=== PATIENT | female | born 1990 | race African-American/Black ===

== ENCOUNTER 2019-09-10 08:59 | Emergency (ER) | payer OTHER ==
[~2019-09-10] VITALS: Ht 167.6 cm; Wt 52.2 kg
--- OUTSIDE RECORDS SUMMARY | ~2019-09-10 | XMS ---
Demographics + + + | Address | [address] [facility] | | | [place] [address] | + + + | Preferred Language | Unknown | + + + | Marital Status | Unknown | + + + | Yazidi Affiliation | Unknown | + + + | Race | Unknown | + + + | Ethnic Group | Unknown | + + + Author + + + | Author | [facility] | + + + | Organization | [facility] | + + + | Address | [address] | | | [place] [address] | + + + | Phone | | + + + Care Team Providers + + + + | Care Yard Demurrage Clerk Name | Role | Phone | + + + + Unavailable | Unavailable | + + + + PROBLEMS +---------+ + + +--------+ + + | Type | Condition | ICD9-CM | [id number] | Onset | Condition | SNOMED | | | | Code | Code | Dates | Status | Code | +---------+ + + +--------+ + + | Problem | Insomnia | | G47.00 | | Active | [id number] | +---------+ + + +--------+ + + | Problem | Depression | | F32.9 | | Active | [id number] | | | , | | | | | | | | unspecifie | | | | | | | | d | | | | | | | | depression | | | | | | | | type | | | | | | +---------+ + + +--------+ + + | Problem | Anxiety | | F41.9 | | Active | [id number] | +---------+ + + +--------+ + + | Problem | Anemia | | O99.013 | | Active | [id number] | | | affecting | | | | | | | | | | | | | | | | in third | | | | | | | | trimester | | | | | | +---------+ + + +--------+ + + | Problem | Depression | | F41.8 | | Active | [id number] | | | with | | | | | | | | anxiety | | | | | | +---------+ + + +--------+ + + ALLERGIES No Known Allergies SOCIAL HISTORY Never Assessed PLAN OF CARE + +---------+ | Activity | Details | + +---------+ +---+ | | +---+ + + + | Follow Up | 4 Weeks Reason:KM for recheck | + + + VITAL SIGNS + + + + | Height | 5 ft 6 in in | 2017-03-25 | + + + + | Weight | 164.1 lbs | 2017-03-25 | + + + + | BMI | 26.48 kg/m2 | 2017-03-25 | + + + + | Temperature | 98.3 degrees Fahrenheit | 2017-03-25 | + + + + | Heart Rate | 112 /min | 2017-03-25 | + + + + | Blood pressure systolic | 116 mm Hg | 2017-03-25 | + + + + | Blood pressure diastolic | 78 mm Hg | 2017-03-25 | + + + + MEDICATIONS + + + + + + + + + | Medicati | Instruct | Dosage | Frequenc | Start | End Date | Duration | Status | | on | ions | | y | Date | | | | + + + + + + + + + | | Orally | as | 24h | 28 Sep, | | 30 days | Not-Taki | | Vitamin | once a | directed | | 2016 | | | ng | | 27-0.8 | day | | | | | | | | MG | | | | | | | | + + + + + + + + + | Depo | | | | | | | Active | | Provera | | | | | | | | | IM | | | | | | | | + + + + + + + + + | Cycloben | Orally | 1 tablet | | | 22 Feb, | 30 | Active | | zaprine | at | as | | | 2018 | day(s) | | | HCl 5 MG | bedtime | needed | | | | | | | | prn | | | | | | | + + + + + + + + + | Lexapro | Orally | 1 tablet | 24h | Mar, | | 30 | Active | | 10 mg | Once a | | | 2018 | | day(s) | | | | day | | | | | | | + + + + + + + + + RESULTS No Results PROCEDURES + + +--------+ + | Procedure | Date Ordered | Result | Body Site | + + +--------+ + | Depo Provera 150 | Mar 25, 2017 | | | | mg/ml | | | | + + +--------+ + | INJECTION | Mar 25, 2017 | | | | ADMINISTRATION | | | | + + +--------+ + | DOC MEDS VERIFIED | Mar 25, 2017 | | | | W/PT OR RE | | | | + + +--------+ + IMMUNIZATIONS + + + + + | Vaccine | Route | Administration Date | Status | + + + + + | Depo Provera 150 | IM Intramuscular | Mar 25, 2017 | Administered | | mg/ml | | | | + + + + + MEDICAL (GENERAL) HISTORY + + + + | Type | Description | Date | + + + + | Medical History | | | + + + + | Surgical History | | 07/2016 | + + + + | Hospitalization History | Induction for Preeclampsia | Nov 11 | | | with severe features / | | + + + + | Hospitalization History | Induction for Preeclampsia, | July 2016 | | | HELLP, placental | | | | abruption, anemia | | + + + +"
--- OUTSIDE RECORDS SUMMARY | ~2019-09-10 | XMS ---
Demographics + + + | Address | [address] [facility] | | | [place] [address] | + + + | Preferred Language | Unknown | + + + | Marital Status | Unknown | + + + | Church Affiliation | Unknown | + + + | Race | Unknown | + + + | Ethnic Group | Unknown | + + + Author + + + | Author | [facility] | + + + | Organization | [facility] | + + + | Address | [address] | | | [place] [address] | + + + | Phone | [phone] | + + + Care Team Providers + + + + | Care Jewelry Sales Associate Name | Role | Phone | + + + + Unavailable | Unavailable | + + + + PROBLEMS +---------+ + + +--------+ + + | Type | Condition | ICD9-CM | [id number] | Onset | Condition | SNOMED | | | | Code | Code | Dates | Status | Code | +---------+ + + +--------+ + + | Problem | Anemia | O99.013 | | | Active | [id number] | | | affecting | | | | | | | | | | | | | | | | in third | | | | | | | | trimester | | | | | | +---------+ + + +--------+ + + | Problem | Depression | | F41.8 | | Active | [id number] | | | with | | | | | | | | anxiety | | | | | | +---------+ + + +--------+ + + | Problem | Anxiety | | F41.9 | | Active | 86060119 | +---------+ + + +--------+ + + ALLERGIES + + + + +---------+ | Substance | Reaction | Event Type | Date | Status | + + + + +---------+ | N.K.D.A. | Unknown | Non Drug | Aug, | Unknown | | | | Allergy | | | + + + + +---------+ SOCIAL HISTORY No smoking Hx information available PLAN OF CARE + +---------+ | Activity | Details | + +---------+ +---+ | | +---+ + + + | Follow Up | prn Reason:null | + + + | Pending Test | Urinalysis, Dip (IH) | + + + VITAL SIGNS + + + + | Height | 5 ft 6 in in | 2016-09-19 | + + + + | Weight | 149 lbs | 2016-09-19 | + + + + | BMI | 24.05 kg/m2 | 2016-09-19 | + + + + | Heart Rate | 114 /min | 2016-09-19 | + + + + | Blood pressure systolic | 122 mm Hg | 2016-09-19 | + + + + | Blood pressure diastolic | 67 mm Hg | 2016-09-19 | + + + + MEDICATIONS + + + + + + + +--------+ | Medicati | Instruct | Dosage | Frequenc | Start | End Date | Duration | Status | | on | ions | | y | Date | | | | + + + + + + + +--------+ | Cycloben | po q8hr | 1 tab(s) | | Jan, | Jan, | 30 days | Active | | zaprine | PRN | | | 2015 | 2016 | | | | 10 mg | | | | | | | | + + + + + + + +--------+ | | Orally | as | 24h | 28 Nov, | | 30 days | Active | | Vitamin | once a | directed | | 2015 | | | | | 27-0.8 | day | | | | | | | | MG | | | | | | | | + + + + + + + +--------+ RESULTS No Results PROCEDURES + + + + + | Procedure | Date Ordered | Related Diagnosis | Body Site | + + + + + | LAB URINALYSIS (DIP | September 19, 2016 | | | | STICK ONLY | | | | + + + + + | Est Level III | September 19, 2016 | | | | Intermediate | | | | + + + + + | DOC MEDS VERIFIED | September 19, 2016 | | | | W/PT OR RE | | | | + + + + + | DSCHRG MED/CURRENT | September 19, 2016 | | | | MED MERGE | | | | + + + + + IMMUNIZATIONS No Known Immunizations"
--- OUTSIDE RECORDS SUMMARY | ~2019-09-10 | XMS ---
Demographics + + + | Address | [address] [facility] | | | [place] [address] | + + + | Preferred Language | Unknown | + + + | Marital Status | Unknown | + + + | Mandaeism Affiliation | Unknown | + + + | Race | Unknown | + + + | Ethnic Group | Unknown | + + + Author + + + | Author | [facility] | + + + | Organization | [facility] | + + + | Address | [address] | | | [place] [address] | + + + | Phone | | + + + Care Team Providers + + + + | Care Pipe Organ Tuner And Repairer Name | Role | Phone | + + + + Unavailable | Unavailable | + + + + PROBLEMS +---------+ + + +--------+ + + | Type | Condition | ICD9-CM | [id number] | Onset | Condition | SNOMED | | | | Code | Code | Dates | Status | Code | +---------+ + + +--------+ + + | Problem | Insomnia | | G47.00 | | Active | [id number] | +---------+ + + +--------+ + + | Problem | Depression | | F32.9 | | Active | 61975887 | | | , | | | | | | | | unspecifie | | | | | | | | d | | | | | | | | depression | | | | | | | | type | | | | | | +---------+ + + +--------+ + + | Problem | Anxiety | | F41.9 | | Active | 79304738 | +---------+ + + +--------+ + + | Problem | Anemia | | O99.013 | | Active | 10556228 | | | affecting | | | | | | | | | | | | | | | | in third | | | | | | | | trimester | | | | | | +---------+ + + +--------+ + + | Problem | Depression | | F41.8 | | Active | [id number] | | | with | | | | | | | | anxiety | | | | | | +---------+ + + +--------+ + + ALLERGIES No Known Allergies SOCIAL HISTORY Never Assessed PLAN OF CARE + +---------+ | Activity | Details | + +---------+ +---+ | | +---+ + + + | Follow Up | 3 Months Reason: | + + + VITAL SIGNS + + + + | Height | 5 ft 6 in in | 2016-11-21 | + + + + | Weight | 155.4 lbs | 2016-11-21 | + + + + | BMI | 25.08 kg/m2 | 2016-11-21 | + + + + | Temperature | 98.2 degrees Fahrenheit | 2016-11-21 | + + + + | Heart Rate | 102 /min | 2016-11-21 | + + + + | Blood pressure systolic | 110 mm Hg | 2016-11-21 | + + + + | Blood pressure diastolic | 70 mm Hg | 2016-11-21 | + + + + MEDICATIONS + + + + + + + +--------+ | Medicati | Instruct | Dosage | Frequenc | Start | End Date | Duration | Status | | on | ions | | y | Date | | | | + + + + + + + +--------+ | Cycloben | po q8hr | 1 tab(s) | | 29 Jan, | 19 Dec, | 30 days | Active | | zaprine | PRN | | | 2016 | 2017 | | | | 10 mg | | | | | | | | + + + + + + + +--------+ | | Orally | as | 24h | 28 Sep, | | 30 days | Active | | Vitamin | once a | directed | | 2015 | | | | | 27-0.8 | day | | | | | | | | MG | | | | | | | | + + + + + + + +--------+ | Depo | | | | | | | Active | | Provera | | | | | | | | | IM | | | | | | | | + + + + + + + +--------+ RESULTS + +--------+ + + | Name | Result | Date | Reference Range | + +--------+ + + | Urinalysis, HCG | | 2016-11-21 | | | (IH) | | | | + +--------+ + + PROCEDURES + + +--------+ + | Procedure | Date Ordered | Result | Body Site | + + +--------+ + | FC [id number] URINE | Nov 21, 2016 | | | | TEST | | | | + + +--------+ + | Depo Provera 150 | Nov 21, 2016 | | | | mg/ml | | | | + + +--------+ + | INJECTION | Nov 21, 2016 | | | | ADMINISTRATION | | | | + + +--------+ + IMMUNIZATIONS + + + + + | Vaccine | Route | Administration Date | Status | + + + + + | Depo Provera 150 | IM Intramuscular | Nov 21, 2016 | Administered | | mg/ml | | [...]
--- OUTSIDE RECORDS SUMMARY | ~2019-09-10 | XMS ---
Demographics + + + | Address | [address] [facility] | | | [place] [address] | + + + | Preferred Language | Unknown | + + + | Marital Status | Unknown | + + + | Nondenominational Affiliation | Unknown | + + + | Race | Unknown | + + + | Ethnic Group | Unknown | + + + Author + + + | Author | [facility] | + + + | Organization | [facility] | + + + | Address | [address] | | | [place] [address] | + + + | Phone | | + + + Care Team Providers + + + + | Care Bread Stacker Name | Role | Phone | + + + + Unavailable | Unavailable | + + + + PROBLEMS +---------+ + + +--------+ + + | Type | Condition | ICD9-CM | [id number] | Onset | Condition | SNOMED | | | | Code | Code | Dates | Status | Code | +---------+ + + +--------+ + + | Problem | Anemia | O99.013 | | | Active | | | | affecting | | | | | | | | | | | | | | | | in third | | | | | | | | trimester | | | | | | +---------+ + + +--------+ + + | Problem | Depression | | F41.8 | | Active | [id number] | | | with | | | | | | | | anxiety | | | | | | +---------+ + + +--------+ + + | Problem | Anxiety | | F41.9 | | Active | 02299339 | +---------+ + + +--------+ + + ALLERGIES Unknown Allergies SOCIAL HISTORY No smoking Hx information available PLAN OF CARE VITAL SIGNS MEDICATIONS Unknown Medications RESULTS No Results PROCEDURES No Known procedures IMMUNIZATIONS No Known Immunizations"
--- OUTSIDE RECORDS SUMMARY | ~2019-09-10 | XMS ---
Demographics + + + | Address | [address] [facility] | | | [place] [address] | + + + | Preferred Language | Unknown | + + + | Marital Status | Unknown | + + + | Buddhist Affiliation | Unknown | + + + | Race | Unknown | + + + | Ethnic Group | Unknown | + + + Author + + + | Author | [facility] | + + + | Organization | [facility] | + + + | Address | [address] | | | [place] [address] | + + + | Phone | [phone] | + + + Care Team Providers + + + + | Care Student Nurse Name | Role | Phone | + + + + Unavailable | Unavailable | + + + + PROBLEMS +---------+ + + +--------+ + + | Type | Condition | ICD9-CM | HKS01-[id number] | Onset | Condition | SNOMED | | | | Code | Code | Dates | Status | Code | +---------+ + + +--------+ + + | Problem | Insomnia | | G47.00 | | Active | [id number] | +---------+ + + +--------+ + + | Problem | Depression | | F32.9 | | Active | 67486353 | | | , | | | | | | | | unspecifie | | | | | | | | d | | | | | | | | depression | | | | | | | | type | | | | | | +---------+ + + +--------+ + + | Problem | Anxiety | | F41.9 | | Active | 85790725 | +---------+ + + +--------+ + + | Problem | Anemia | | O99.013 | | Active | 17220307 | | | affecting | | | | | | | | | | | | | | | | in third | | | | | | | | trimester | | | | | | +---------+ + + +--------+ + + | Problem | Depression | | F41.8 | | Active | [id number] | | | with | | | | | | | | anxiety | | | | | | +---------+ + + +--------+ + + ALLERGIES No Known Allergies SOCIAL HISTORY Never Assessed PLAN OF CARE + +---------+ | Activity | Details | + +---------+ +---+ | | +---+ + + + | Follow Up | prn, 2 Months Reason:Depo | + + + VITAL SIGNS + + + + | Height | 5 ft 6 in in | 2017-04-29 | + + + + | Weight | 167.0 lbs | 2017-04-29 | + + + + | BMI | 26.95 kg/m2 | 2017-04-29 | + + + + | Heart Rate | 107 /min | 2017-04-29 | + + + + | Blood pressure systolic | 121 mm Hg | 2017-04-29 | + + + + | Blood pressure diastolic | 70 mm Hg | 2017-04-29 | + + + + MEDICATIONS + + + + + + + +--------+ | Medicati | Instruct | Dosage | Frequenc | Start | End Date | Duration | Status | | on | ions | | y | Date | | | | + + + + + + + +--------+ | Cycloben | po qhs | 1 tab(s) | | | 27 Gabriel, | 30 | Active | | zaprine | PRN | | | | 2018 | day(s) | | | 10 mg | | | | | | | | + + + + + + + +--------+ | Depo | | | | | | | Active | | Provera | | | | | | | | | IM | | | | | | | | + + + + + + + +--------+ | HydrOXYz | Orally | 1-2 | | | | 30 | Active | | ine HCl | prn at | tablets | | | | day(s) | | | 25MG | bedtime | | | | | | | + + + + + + + +--------+ | Lexapro | Orally | 1 tablet | 24h | 23 Mar, | | 30 | Active | | 10 mg | Once a | | | 2017 | | day(s) | | | | day | | | | | | | + + + + + + + +--------+ RESULTS No Results PROCEDURES + + +--------+ + | Procedure | Date Ordered | Result | Body Site | + + +--------+ + | DSCHRG MED/CURRENT | Apr 29, 2017 | | | | MED MERGE | | | | + + +--------+ + | Doc pt dx dep/bp | Apr 29, 2017 | | | | f/u nt req | | | | + + +--------+ + | DOC MEDS VERIFIED | Apr 29, 2017 | | | | W/PT OR RE | | | | + + +--------+ + | TOBACCO NON-USER | Apr 29, 2017 | | | + + +--------+ + IMMUNIZATIONS No Known Immunizations MEDICAL (GENERAL) HISTORY + + + + [...]
--- OUTSIDE RECORDS SUMMARY | ~2019-09-10 | XMS ---
Demographics + + + | Address | [address] | | | [place] [address] | + + + | Preferred Language | Unknown | + + + | Marital Status | Unknown | + + + | Taoism Affiliation | Unknown | + + + | Race | Unknown | + + + | Ethnic Group | Unknown | + + + Author + + + | Author | [facility] | + + + | Organization | [facility] | + + + | Address | [address] | | | [place] [address] | + + + | Phone | | + + + Care Team Providers + + + + | Care Drapery Hemmer Automatic Name | Role | Phone | + + + + Unavailable | Unavailable | + + + + PROBLEMS +---------+ + + +--------+ + + | Type | Condition | ICD9-CM | [id number] | Onset | Condition | SNOMED | [...] | | F41.8 | | Active | [id number] | | | with | | | | | | | | anxiety | | | | | | +---------+ + + +--------+ + + | Problem | Anxiety | | F41.9 | | Active | 18977103 | +---------+ + + +--------+ + + ALLERGIES Unknown Allergies SOCIAL HISTORY No smoking Hx information available PLAN OF CARE VITAL SIGNS MEDICATIONS Unknown Medications RESULTS No Results PROCEDURES No Known procedures IMMUNIZATIONS No Known Immunizations"
--- OUTSIDE RECORDS SUMMARY | ~2019-09-10 | XMS ---
Demographics + + + | Address | [address] [facility] | | | [place] [address] | + + + | Preferred Language | Unknown | + + + | Marital Status | Unknown | + + + | Christian Affiliation | Unknown | + + + | Race | Unknown | + + + | Ethnic Group | Unknown | + + + Author + + + | Author | [facility] | + + + | Organization | [facility] | + + + | Address | [address] | | | [place] [address] | + + + | Phone | | + + + Care Team Providers + + + + | Care Hop Worker Name | Role | Phone | + + + + Unavailable | Unavailable | + + + + PROBLEMS +---------+ + + +--------+ + + | Type | Condition | ICD9-CM | [id number] | Onset | Condition | SNOMED | | | | Code | Code | Dates | Status | Code | +---------+ + + +--------+ + + | Problem | Insomnia | | G47.00 | | Active | [id number] | +---------+ + + +--------+ + + | Problem | Depression | | F32.9 | | Active | 75649393 | | | , | | | | | | | | unspecifie | | | | | | | | d | | | | | | | | depression | | | | | | | | type | | | | | | +---------+ + + +--------+ + + | Problem | Anxiety | | F41.9 | | Active | 17165139 | +---------+ + + +--------+ + + | Problem | Anemia | | O99.013 | | Active | 45394135 | | | affecting | | | | | | | | | | | | | | | | in third | | | | | | | | trimester | | | | | | +---------+ + + +--------+ + + | Problem | Depression | | F41.8 | | Active | [id number] | | | with | | | | | | | | anxiety | | | | | | +---------+ + + +--------+ + + ALLERGIES No Information SOCIAL HISTORY Never Assessed PLAN OF CARE + +---------+ | Activity | Details | + +---------+ +---+ | | +---+ + + + | Follow Up | 1 Reason: | + + + VITAL SIGNS +--------+---------+ + | Weight | 157 lbs | 2016-06-19 | +--------+---------+ + MEDICATIONS + + + + + + + + + | Medicati | Instruct | Dosage | Frequenc | Start | End Date | Duration | Status | | on | ions | | y | Date | | | | + + + + + + + + + | Aspirin | orally | one tab | 24h | 29 Jan, | | days | Active | | 81 mg | daily | | | 2016 | | | | + + + + + + + + + | Prozac | Orally | 1 | 24h | 28 Nov, | | 30 | Not-Taki | | 40 mg | Once a | capsule | | 2016 | | day(s) | ng | | | day | in the | | | | | | | | | morning | | | | | | + + + + + + + + + | Ondanset | | | | | | | Not-Taki | | ella HCl | | | | | | | ng | + + + + + + + + + | tylenol | | | | | | | Not-Taki | | | | | | | | | ng | + + + + + + [...] + + + + | Cycloben | po q8hr | 1 tab(s) | | 29 Nov, | 25 Albert, | 30 days | Active | | zaprine | PRN | | | 2015 | 2016 | | | | 10 mg | | | | | | | | + + + + + + + + + RESULTS No Results PROCEDURES + + +--------+ + | Procedure | Date Ordered | Result | Body Site | + + +--------+ + | Antepartum visit | June 19, 2016 | | | + + +--------+ + [...]
--- OUTSIDE RECORDS SUMMARY | ~2019-09-10 | XMS ---
Demographics + + + | Address | [address] [facility] | | | [place] [address] | + + + | Preferred Language | Unknown | + + + | Marital Status | Unknown | + + + | Yazdanism Affiliation | Unknown | + + + | Race | Unknown | + + + | Ethnic Group | Unknown | + + + Author + + + | Author | [facility] | + + + | Organization | [facility] | + + + | Address | [address] | | | [place] [address] | + + + | Phone | | + + + Care Team Providers + + + + | Care Waterworks Employee Name | Role | Phone | + + + + Unavailable | Unavailable | + + + + PROBLEMS +---------+ + + +--------+ + + | Type | Condition | ICD9-CM | [id number] | Onset | Condition | SNOMED | | | | Code | Code | Dates | Status | Code | +---------+ + + +--------+ + + | Problem | Insomnia | | G47.00 | | Active | [id number] | +---------+ + + +--------+ + + | Problem | Depression | | F32.9 | | Active | 47960880 | | | , | | | | | | | | unspecifie | | | | | | | | d | | | | | | | | depression | | | | | | | | type | | | | | | +---------+ + + +--------+ + + | Problem | Anxiety | | F41.9 | | Active | 98742074 | +---------+ + + +--------+ + + | Problem | Anemia | | O99.013 | | Active | 12353147 | | | affecting | | | | | | | | | | | | | | | | in third | | | | | | | | trimester | | | | | | +---------+ + + +--------+ + + | Problem | Depression | | F41.8 | | Active | 157351747 | | | with | | | | | | | | anxiety | | | | | | +---------+ + + +--------+ + + ALLERGIES No Known Allergies SOCIAL HISTORY Never Assessed PLAN OF CARE + +---------+ | Activity | Details | + +---------+ +---+ | | +---+ + + + | Follow Up | 2 - 3 Days Reason:Incision check | + + + VITAL SIGNS + + + + | Height | 5 ft 6 in in | 2016-07-23 | + + + + | Weight | 138.3 lbs | 2016-07-23 | + + + + | BMI | 22.32 kg/m2 | 2016-07-23 | + + + + | Temperature | 97.7 degrees Fahrenheit | 2016-07-23 | + + + + | Heart Rate | 123 /min | 2016-07-23 | + + + + | Blood pressure systolic | 122 mm Hg | 2016-07-23 | + + + + | Blood pressure diastolic | 82 mm Hg | 2016-07-23 | + + + + MEDICATIONS + [...] directed | | 2016 | | | | | 27-0.8 | day | | | | | | | | MG | | | | | | | | + + + + + + + + + | Percocet | | | | | | | Active | + + + + + + + + + | Tramadol | | | | | | | Active | | HCl | | | | | | | | + + + + + + + + + | Aspirin | orally | one tab | 24h | 29 Jan, | | days | Not-Taki | | 81 mg | daily | | | 2015 | | | ng | + + [...] | Once a | capsule | | 2015 | | day(s) | ng | | [...] + + + + + + | Procardi | Orally | 1 tablet | 24h | | | | Active | | a XL 30 | Once a | | | | | | | | mg | day | | | | | | | + + + + + + + + + RESULTS No Results PROCEDURES + + +--------+ + | Procedure | Date Ordered | Result | Body Site | + + +--------+ + | INJECTION | July 23, 2016 | | | | INTRAMUSCULAR OR | | | | | SUBCUTANEOUS | | | | + + +--------+ + | Depo Provera 150 | July 23, 2016 | | | | mg/ml | | | | + + +--------+ + | visit | July 23, 2016 | | | + + +--------+ + IMMUNIZATIONS + + + + + | Vaccine | Route | Administration Date | Status | + + + + + | Depo Provera 150 | IM Intramuscular | July 23, 2016 | Administered | | mg/ml | [...]
--- OUTSIDE RECORDS SUMMARY | ~2019-09-10 | XMS ---
Demographics + + + | Address | [address] [facility] | | | [place] [address] | + + + | Preferred Language | Unknown | + + + | Marital Status | Unknown | + + + | Catholic Affiliation | Unknown | + + + | Race | Unknown | + + + | Ethnic Group | Unknown | + + + Author + + + | Author | [facility] | + + + | Organization | [facility] | + + + | Address | [address] | | | [place] [address] | + + + | Phone | | + + + Care Team Providers + + + + | Care Retail Coverage Merchandiser Lead Name | Role | Phone | + + + + Unavailable | Unavailable | + + + + PROBLEMS +---------+ + + +--------+ + + | Type | Condition | ICD9-CM | [id number] | Onset | Condition | SNOMED | | | | Code | Code | Dates | Status | Code | +---------+ + + +--------+ + + | Problem | Insomnia | | G47.00 | | Active | 015226998 | +---------+ + + +--------+ + + | Problem | Depression | | F32.9 | | Active | 05005990 | | | , | | | | | | | | unspecifie | | | | | | | | d | | | | | | | | depression | | | | | | | | type | | | | | | +---------+ + + +--------+ + + | Problem | Anxiety | | F41.9 | | Active | 37306841 | +---------+ + + +--------+ + + | Problem | Anemia | | O99.013 | | Active | 92736286 | | | affecting | | | | | | | | | | | | | | | | in third | | | | | | | | trimester | | | | | | +---------+ + + +--------+ + + | Problem | Depression | | F41.8 | | Active | 524004897 | | | with | | | [...] | 5 ft 6 in in | 2017-01-07 | + + + + | Weight | 159.1 lbs | 2017-01-07 | + + + + | BMI | 25.68 kg/m2 | 2017-01-07 | + + + + | Temperature | 98.5 degrees Fahrenheit | 2017-01-07 | + + + + | Heart Rate | 116 /min | 2017-01-07 | + + + + | Blood pressure systolic | 118 mm Hg | 2017-01-07 | + + + + | Blood pressure diastolic | 72 mm Hg | 2017-01-07 | + + + + MEDICATIONS + [...] 28 Nov, | | 30 days | Not-Taki | | Vitamin | once a | directed | | 2015 | | | ng | | 27-0.8 [...] +--------+ + | Depo Provera 150 | Jan 07, 2017 | | | | mg/ml | | | | + + +--------+ + | INJECTION | Jan 07, 2017 | | | | ADMINISTRATION | | | | + + +--------+ + IMMUNIZATIONS + + + + + | Vaccine | Route | Administration Date | Status | + + + + + | Depo Provera 150 | IM Intramuscular | Jan 07, 2017 | Administered | | mg/ml | [...]
--- OUTSIDE RECORDS SUMMARY | ~2019-09-10 | XMS ---
Demographics + + + | Address | [address] [facility] | | | [place] [address] | + + + | Preferred Language | Unknown | + + + | Marital Status | Unknown | + + + | Mandaen Affiliation | Unknown | + + + | Race | Unknown | + + + | Ethnic Group | Unknown | + + + Author + + + | Author | [facility] | + + + | Organization | [facility] | + + + | Address | [address] | | | [place] [address] | + + + | Phone | [phone] | + + + Care Team Providers + + + + | Care Solar Designer Name | Role | Phone | + + + + Unavailable | Unavailable | + + + + PROBLEMS +---------+ + + +--------+ + + | Type | Condition | ICD9-CM | [id number] | Onset | Condition | SNOMED | | | | Code | Code | Dates | Status | Code | +---------+ + + +--------+ + + | Problem | Insomnia | | G47.00 | | Active | [id number] | +---------+ + + +--------+ + + | Problem | Depression | | F32.9 | | Active | 88835441 | | | , | | | | | | | | unspecifie | | | | | | | | d | | | | | | | | depression | | | | | | | | type | | | | | | +---------+ + + +--------+ + + | Problem | Anxiety | | F41.9 | | Active | 24030939 | +---------+ + + +--------+ + + | Problem | Anemia | | O99.013 | | Active | 01550954 | | | affecting | | | | | | | | | | | | | | | | in third | | | | | | | | trimester | | | | | | +---------+ + + +--------+ + + | Problem | Depression | | F41.8 | | Active | 313120794 | | | with | | | | | | | | anxiety | | | | | | +---------+ + + +--------+ + + ALLERGIES No Information SOCIAL HISTORY Never Assessed PLAN OF CARE VITAL SIGNS MEDICATIONS Unknown Medications RESULTS No Results PROCEDURES No Known procedures IMMUNIZATIONS No Known Immunizations MEDICAL (GENERAL) HISTORY [...]
--- OUTSIDE RECORDS SUMMARY | ~2019-09-10 | XMS ---
Demographics + + + | Address | [address] [facility] | | | [place] [address] | + + + | Preferred Language | Unknown | + + + | Marital Status | Unknown | + + + | Jain Affiliation | Unknown | + + + | Race | Unknown | + + + | Ethnic Group | Unknown | + + + Author + + + | Author | [facility] | + + + | Organization | [facility] | + + + | Address | [address] | | | [place] [address] | + + + | Phone | | + + + Care Team Providers + + + + | Care Business Performance Specialist Name | Role | Phone | + + + + Unavailable | Unavailable | + + + + PROBLEMS +---------+ + + +--------+ + + | Type | Condition | ICD9-CM | [id number] | Onset | Condition | SNOMED | | | | Code | Code | Dates | Status | Code | +---------+ + + +--------+ + + | Problem | Insomnia | | G47.00 | | Active | 216229391 | +---------+ + + +--------+ + + | Problem | Depression | | F32.9 | | Active | 34439264 | | | , | | | | | | | | unspecifie | | | | | | | | d | | | | | | | | depression | | | | | | | | type | | | | | | +---------+ + + +--------+ + + | Problem | Anxiety | | F41.9 | | Active | 82752814 | +---------+ + + +--------+ + + | Problem | Anemia | | O99.013 | | Active | 42362030 | | | affecting | | | | | | | | | | | | | | | | in third | | | | | | | | trimester | | | | | | +---------+ + + +--------+ + + | Problem | Depression | | F41.8 | | Active | [id number] | | | with | | | | | | | | anxiety | | | | | | +---------+ + + +--------+ + + ALLERGIES No Information SOCIAL HISTORY Never Assessed PLAN OF CARE + +---------+ | Activity | Details | + +---------+ +---+ | | +---+ + + + | Follow Up | prn Reason: | + + + VITAL SIGNS MEDICATIONS Unknown Medications RESULTS No Results PROCEDURES + + +--------+ + | Procedure | Date Ordered | Result | Body Site | + + +--------+ + | DELIVERY - | July 12, 2016 | | | | includes | | | | | antepartumand | | | | | | | | | + + +--------+ [...]
--- OUTSIDE RECORDS SUMMARY | ~2019-09-10 | XMS ---
Demographics + + + | Address | [address] [facility] | | | [place] [address] | + + + | Preferred Language | Unknown | + + + | Marital Status | Unknown | + + + | Caodaism Affiliation | Unknown | + + + | Race | Unknown | + + + | Ethnic Group | Unknown | + + + Author + + + | Author | [facility] | + + + | Organization | [facility] | + + + | Address | [address] | | | [place] [address] | + + + | Phone | | + + + Care Team Providers + + + + | Care Urologist Md Name | Role | Phone | + + + + Unavailable | Unavailable | + + + + PROBLEMS +---------+ + + +--------+ + + | Type | Condition | ICD9-CM | [id number] | Onset | Condition | SNOMED | | | | Code | Code | Dates | Status | Code | +---------+ + + +--------+ + + | Problem | Insomnia | | G47.00 | | Active | [id number] | +---------+ + + +--------+ + + | Problem | Depression | | F32.9 | | Active | 25493782 | | | , | | | | | | | | unspecifie | | | | | | | | d | | | | | | | | depression | | | | | | | | type | | | | | | +---------+ + + +--------+ + + | Problem | Anxiety | | F41.9 | | Active | 01645466 | +---------+ + + +--------+ + + | Problem | Anemia | | O99.013 | | Active | 89039670 | | | affecting | | | | | | | | | | | | | | | | in third | | | | | | | | trimester | | | | | | +---------+ + + +--------+ + + | Problem | Depression | | F41.8 | | Active | 897632604 | | | with | | | [...] VITAL SIGNS +--------+---------+ + | Weight | 162 lbs | 2016-07-02 | +--------+---------+ + MEDICATIONS + + + [...] 1 tab(s) | | 29 Jan, | 25 Aug, | 30 days | Active | | [...] + +--------+ + | Antepartum visit | July 02, 2016 | | | + + +--------+ [...]
--- OUTSIDE RECORDS SUMMARY | ~2019-09-10 | XMS ---
Demographics + + + | Address | [address] [facility] | | | [place] [address] | + + + | Preferred Language | Unknown | + + + | Marital Status | Unknown | + + + | Denominational Affiliation | Unknown | + + + | Race | Unknown | + + + | Ethnic Group | Unknown | + + + Author + + + | Author | [facility] | + + + | Organization | [facility] | + + + | Address | [address] | | | [place] [address] | + + + | Phone | | + + + Care Team Providers + + + + | Care Debridging Machine Operator Name | Role | Phone | + + + + Unavailable | Unavailable | + + + + PROBLEMS +---------+ + + +--------+ + + | Type | Condition | ICD9-CM | [id number] | Onset | Condition | SNOMED | | | | Code | Code | Dates | Status | Code | +---------+ + + +--------+ + + | Problem | Insomnia | | G47.00 | | Active | 639554792 | +---------+ + + +--------+ + + | Problem | Depression | | F32.9 | | Active | 64313021 | | | , | | | | | | | | unspecifie | | | | | | | | d | | | | | | | | depression | | | | | | | | type | | | | | | +---------+ + + +--------+ + + | Problem | Anxiety | | F41.9 | | Active | 82795851 | +---------+ + + +--------+ + + | Problem | Anemia | | O99.013 | | Active | 47557750 | | | affecting | | | | | | | | | | | | | | | | in third | | | | | | | | trimester | | | | | | +---------+ + + +--------+ + + | Problem | Depression | | F41.8 | | Active | 373933370 | | | with | | | [...] Reason: | + + + VITAL SIGNS +--------+ + + | Weight | 158.9 lbs | 2016-07-10 | +--------+ + + MEDICATIONS + + + + + + + + + | Medicati | Instruct | Dosage | Frequenc | Start | End Date | Duration | Status | | on | ions | | y | Date | | | | + + + + + + + + + | | Orally | as | 24h | Nov, | | 30 days | Active [...] orally | one tab | 24h | Jan, | | days | Not-Taki | [...] +--------+ + | Antepartum visit | July 10, 2016 | | | + + +--------+ [...]
--- OUTSIDE RECORDS SUMMARY | ~2019-09-10 | XMS ---
Demographics + + + | Address | [address] [facility] | | | [place] [address] | + + + | Preferred Language | Unknown | + + + | Marital Status | Unknown | + + + | Mosque Affiliation | Unknown | + + + | Race | Unknown | + + + | Ethnic Group | Unknown | + + + Author + + + | Author | [facility] | + + + | Organization | [facility] | + + + | Address | [address] | | | [place] [address] | + + + | Phone | | + + + Care Team Providers + + + + | Care Stripper [place] Name | Role | Phone | + + + + Unavailable | Unavailable | + + + + PROBLEMS +---------+ + + +--------+ + + | Type | Condition | ICD9-CM | [id number] | Onset | Condition | SNOMED | | | | Code | Code | Dates | Status | Code | +---------+ + + +--------+ + + | Problem | Insomnia | | G47.00 | | Active | 420579864 | +---------+ + + +--------+ + + | Problem | Depression | | F32.9 | | Active | 66831508 | | | , | | | | | | | | unspecifie | | | | | | | | d | | | | | | | | depression | | | | | | | | type | | | | | | +---------+ + + +--------+ + + | Problem | Anxiety | | F41.9 | | Active | 05304702 | +---------+ + + +--------+ + + | Problem | Anemia | | O99.013 | | Active | 89130223 | | | affecting | | | | | | | | | | | | | | | | in third | | | | | | | | trimester | | | | | | +---------+ + + +--------+ + + | Problem | Depression | | F41.8 | | Active | 094398799 | | | with | | | | | | | | anxiety | | | | | | +---------+ + + +--------+ + + ALLERGIES No Known Allergies SOCIAL HISTORY Never Assessed PLAN OF CARE + +---------+ | Activity | Details | + +---------+ +---+ | | +---+ + + + | Follow Up | 2 Reason: | + + + VITAL SIGNS +--------+---------+ + | Weight | 151 lbs | 2016-06-11 | +--------+---------+ + MEDICATIONS + + + [...] Orally | 1 | 24h | 28 Sep, | | 30 | Not-Taki | | [...] 24h | Jan, | | days | Active | | 81 mg | daily | | | 2015 | | | | + + + + + + + + + | Cycloben | po q8hr | 1 tab(s) | | Jan, | 25 Albert, | 30 days | [...] +--------+ + | Antepartum visit | June 11, 2016 | | | + + +--------+ [...]
--- OUTSIDE RECORDS SUMMARY | ~2019-09-10 | XMS ---
Demographics + + + | Address | [address] [facility] | | | [place] [address] | + + + | Preferred Language | Unknown | + + + | Marital Status | Unknown | + + + | Christianity Affiliation | Unknown | + + + | Race | Unknown | + + + | Ethnic Group | Unknown | + + + Author + + + | Author | [facility] | + + + | Organization | [facility] | + + + | Address | [address] | | | [place] [address] | + + + | Phone | | + + + Care Team Providers + + + + | Care Casino Banker Name | Role | Phone | + + + + Unavailable | Unavailable | + + + + PROBLEMS +---------+ + + +--------+ + + | Type | Condition | ICD9-CM | [id number] | Onset | Condition | SNOMED | | | | Code | Code | Dates | Status | Code | +---------+ + + +--------+ + + | Problem | Insomnia | | G47.00 | | Active | [id number] | +---------+ + + +--------+ + + | Problem | Depression | | F32.9 | | Active | 47504584 | | | , | | | | | | | | unspecifie | | | | | | | | d | | | | | | | | depression | | | | | | | | type | | | | | | +---------+ + + +--------+ + + | Problem | Anxiety | | F41.9 | | Active | 56002696 | +---------+ + + +--------+ + + | Problem | Anemia | | O99.013 | | Active | 08841998 | | | affecting | | | | | | | | | | | | | | | | in third | | | | | | | | trimester | | | | | | +---------+ + + +--------+ + + | Problem | Depression | | F41.8 | | Active | 767364970 | | | with | | | | | | | | anxiety | | | | | | +---------+ + + +--------+ + + ALLERGIES No Known Allergies SOCIAL HISTORY Never Assessed PLAN OF CARE + +---------+ | Activity | Details | + +---------+ +---+ | | +---+ + + + | Follow Up | 4 Weeks, 1 Year Reason:BP check, Annual | | | exam (both with KM) | + + + VITAL SIGNS + + + + | Height | 5 ft 6 in in | 2016-08-21 | + + + + | Weight | 144.2 lbs | 2016-08-21 | + + + + | BMI | 23.27 kg/m2 | 2016-08-21 | + + + + | Temperature | 98.8 degrees Fahrenheit | 2016-08-21 | + + + + | Heart Rate | 117 /min | 2016-08-21 | + + + + | Blood pressure systolic | 124 mm Hg | 2016-08-21 | + + + + | Blood pressure diastolic | 80 mm Hg | 2016-08-21 | + + + + MEDICATIONS + [...] | | | | Not-Taki | | HCl | | | | [...] Site | + + +--------+ + | visit | August 21, 2016 | | | + + +--------+ [...]
--- OUTSIDE RECORDS SUMMARY | ~2019-09-10 | XMS ---
Demographics + + + | Address | [address] [facility] | | | [place] [address] | + + + | Preferred Language [...] | + + + | Organization | [facility] | + + + | Address | [address] | | | [place] [address] | + + + | Phone | | + + + Care Team Providers + + + + | Care Stencil Sprayer Name | Role | Phone | + + + + Unavailable | Unavailable | + + + + PROBLEMS +---------+ + + +--------+ + + | Type | Condition | ICD9-CM | KES85-IV | Onset | Condition | SNOMED | | | | Code | Code | Dates | Status | Code | +---------+ + + +--------+ + + | Problem | Insomnia | | G47.00 | | Active | [id number] | +---------+ + + +--------+ + + | Problem | Depression | | F32.9 | | Active | 79277676 | | | , | | | | | | | | unspecifie | | | | | | | | d | | | | | | | | depression | | | | | | | | type | | | | | | +---------+ + + +--------+ + + | Problem | Anxiety | | F41.9 | | Active | 23621176 | +---------+ + + +--------+ + + | Problem | Anemia | | O99.013 | | Active | 92168033 | | | affecting | | | | | | | | | | | | | | | | in third | | | | | | | | trimester | | | | | | +---------+ + + +--------+ + + | Problem | Depression | | F41.8 | | Active | 436387878 | | | with | | | [...] SIGNS +--------+ + + | Weight | 158.5 lbs | 2016-06-25 | +--------+ + + MEDICATIONS + + [...] 1 tab(s) | | Jan, | 25 Aug, | 30 days [...] + + + + + + RESULTS + +--------+ + + | Name | Result | Date | Reference Range | + +--------+ + + | Group B Strep PCR | | 2016-06-25 | | + +--------+ + + | Ferritin | | | | + +--------+ + + | FERRITIN | | | | + +--------+ + + | CBC | | | | + +--------+ + + | WBC | | | | + +--------+ + + | RBC | | | | + +--------+ + + | HEMOGLOBIN | | | | + +--------+ + + | HEMATOCRIT | | | | + +--------+ + + | MCV | | | | + +--------+ + + | MCH | | | | + +--------+ + + | MCHC | | | | + +--------+ + + | RDW | | | | + +--------+ + + | LYMPHOCYTES | | | | + +--------+ + + | NEUTROPHILS | | | | + +--------+ + + | BANDS | | | | + +--------+ + + | MONOCYTES | | | | + +--------+ + + | EOSINOPHILS | | | | + +--------+ + + | BASOPHILS | | | | + +--------+ + + | OTHER | | | | + +--------+ + + | PLATELET COUNT | | | | + +--------+ + + PROCEDURES + + +--------+ + | Procedure | Date Ordered | Result | Body Site | + + +--------+ + | Antepartum visit | June 25, 2016 | | | + + +--------+ [...]
== END 2019-09-10 11:01 | disposition home or self-care (01) ==
LOC: ED 08:59
DX: R11.2 Nausea with vomiting, unspecified (principal); F17.200 Nicotine dependence, unspecified, uncomplicated
CPT/HCPCS: 80053; 84703; 85025; 96374; 96375; 99284-25; J1200; J1630; J2405; J7121

== ENCOUNTER 2019-09-26 10:03 | Emergency (ER) | payer OTHER ==
[~2019-09-26] VITALS: Ht 167.6 cm; Wt 52.2 kg
--- OUTSIDE RECORDS SUMMARY | 2019-09-26 10:06 | XMS ---
PreManage Notification: JOSUE LEARY Security Auth Specialist Events No recent Security Events currently on file CRITERIA MET - [facility] - 2 Visits in 30 Days CARE PROVIDERS There are no care providers on record at this time. Howie has no Care Guidelines for this patient. [facility] VIS[facility] COUNT (12 MO.) [facility] NOTE: Visits indicate total known visits. ED/C VISIT TRACKING (12 MO.) 09/26/2019 10:[address] [facility] [place] TYPE: Emergency COMPLAINT: - VOMITING, ABD PAIN 09/10/2019 09:00 [facility] [place] TYPE: Emergency COMPLAINT: - CHEST PAIN, ARM AND LEG NUMBNESS, VOMITING DIAGNOSES: - Nicotine dependence, unspecified, uncomplicated - Cannabis use, unspecified, uncomplicated - Nausea with vomiting, unspecified INPATIENT VISIT TRACKING (12 MO.) No inpatient visits to display in this time frame [email or web address]
[2019-09-26] MEDS ORDERED: PROTONIX40 MG PO (12:39)
[2019-09-26] MEDS ORDERED: ZOFRAN4 MG PO (12:39)
== END 2019-09-26 13:10 | disposition home or self-care (01) ==
LOC: ED 10:03
DX: R10.13 Epigastric pain (principal); F17.200 Nicotine dependence, unspecified, uncomplicated
CPT/HCPCS: 80053; 83690; 84703; 85025; 96361; 96374; 96375; 99284-25; J1200; J1790; J1885; J2060; J7030

== ENCOUNTER 2023-03-10 09:20 | Emergency (ER) | payer OTHER ==
[~2023-03-10] VITALS: Ht 167.6 cm; Wt 84.0 kg
[~2023-03-10 09:20] MED LIST: PROTONIX40 MG PO; ZOFRAN4 MG PO
[2023-03-10] MEDS ORDERED: BUPROPION XL150 MG PO (09:43)
[2023-03-10] MEDS ORDERED: CLONIDINE HCL0.1 MG PO (09:43)
[2023-03-10] MEDS ORDERED: DIVALPROEX SOD250 M1 PO (09:43)
[2023-03-10 09:51] LABS: BASOPHILS 0.7 % (0-2); HEMATOCRIT 39.3 % (35.0-50.0); HEMOGLOBIN 12.9 g/dL (12.0-18.0); LYMPHOCYTES 29.9 % (24-44); MCH 25.6 (27-36); MCHC 32.8 g/dl (30-36); MCV 78.1 fl (81-99); NEUTROPHILS 60.4 % (39-80); PLATELET COUNT 313 K/uL (140-440); RBC 5.03 M/ul (4.3-5.7); RDW 15.1 (10.5-15.0)
[2023-03-10 10:07] LABS: ALBUMIN 4.1 g/dL (3.4-5.0); ALBUMIN/GLOBULIN RATIO 1.11 (1.1-2.4); ANION GAP 15.8 (7-21); BILIRUBIN, TOTAL 0.3 ng/dL (0.2-1.0); BUN/CREATININE RATIO 7.07 (6.0-28.6); CALCIUM 9.3 mg/dL (8.5-10.1); CREATININE, SERUM 1.13 mg/dL (0.55-1.02); POTASSIUM 2.8 mmol/L (3.5-5.1); PROTEIN, TOTAL 7.8 g/dL (6.4-8.2)
[2023-03-10 15:55] LABS: BILIRUBIN, URINE NEGATIVE (negative); BLOOD/HGB, URINE TRACE-I (Negative); KETONE, URINE SMALL (Negative); LEUK ESTERASE, URINE NEGATIVE (negative); NITRITE, URINE NEGATIVE (negative)
[2023-03-10 16:01] LABS: BACTERIA, URINE 3+ /hpf (negative); CASTS, URINE NONE SEEN \\lpf; COLLECTION TYPE, URINE CLEAN CATCH; CRYSTALS, URINE NONE SEEN (0-1+); EPITHELIAL CELLS, URINE SQUAMOUS 1+ /lpf (0-1+); RED BLOOD CELLS, URINE 0-1 /hpf (0-5); REFLEX CULTURE, URINE Yes (No)
[2023-03-10] MEDS ORDERED: CEFDINIR300 MG PO (18:50)
[2023-03-10] MEDS ORDERED: ONDANSETRON ODT4 MG PO (18:50)
[2023-03-10 19:02] VITALS: BP 123/77
== END 2023-03-10 19:02 | disposition home or self-care (01) ==
LOC: ED 09:20
PROVIDERS: Pediatrics
DX: R11.2 Nausea with vomiting, unspecified (principal); N39.0 Urinary tract infection, site not specified; F17.200 Nicotine dependence, unspecified, uncomplicated; Z79.899 Other long term (current) drug therapy
CPT/HCPCS: 36415; 74177; 80053; 81001; 84703; 85025; 96361; 96375; 96376; 99284-25; A9270; J0696; J1200; J1790; J2405; J7030; Q9967